=== PATIENT | male | born 1975 | race Two or more races ===

== ENCOUNTER 2024-07-28 09:40 | Emergency (ER) | payer OTHER ==
[~2024-07-28] VITALS: Ht 180.3 cm; Wt 77.1 kg
[2024-07-28] MEDS ORDERED: IBUprofen 800 MG TABLET PO ONE (10:15)
[2024-07-28 10:55] VITALS: BP 108/63; O2SAT 100
== END 2024-07-28 10:57 | disposition home or self-care (01) ==
LOC: ER 09:42
DX: H60.8X1 Other otitis externa, right ear (principal)